=== PATIENT | male | born 1965 | race African-American/Black ===

== ENCOUNTER 2016-08-24 12:09 | Emergency (ER) | payer OTHER ==
[~2016-08-24] VITALS: Ht 175.3 cm; Wt 127.0 kg
[2016-08-24 12:16] VITALS: BP 181/108
[2016-08-24] MEDS ORDERED: CIPRO HC OTIC S10 ML OTIC (12:29)
== END 2016-08-24 12:33 | disposition home or self-care (01) ==
LOC: ER 12:09
DX: T16.1XXA Foreign body in right ear, initial encounter (principal); I10 Essential (primary) hypertension; F10.99 Alcohol use, unspecified with unspecified alcohol-induced disorder; Z88.0 Allergy status to penicillin; X58.XXXA Exposure to other specified factors, initial encounter; Y93.89 Activity, other specified; Y92.89 Other specified places as the place of occurrence of the external cause; Y99.8 Other external cause status